=== PATIENT | male | born 1965 | race Caucasian/White ===

== ENCOUNTER 2020-06-27 10:37 | Emergency (ER) | payer BC, OTHER ==
[2020-06-27] MEDS ORDERED: Sodium Chloride 0.9% 10 ML Syringe FLUSH PRN ×2 (11:28→13:10)
[2020-06-27] MEDS ORDERED: Acetaminophen 325 MG Tab PO PRN (11:28)
[2020-06-27] MEDS ORDERED: Sodium Chloride 0.9% 1,000 ML IV ONE (11:28)
--- NOTE | 2020-06-27 11:32 | EDM.PDOC ---
ED HPI GENERAL MEDICAL PROBLEM - General Chief Complaint: Respiratory Problem Stated Complaint: COUGHING UP BLOOD, WEAK Time Seen by Provider: 06/27/20 11:18 Source of Information: Reports: Patient, RN Notes Reviewed History Limitations: Reports: No Limitations - History of Present Illness INITIAL COMMENTS - FREE TEXT/NARRATIVE: 55-year-old gentleman presents emergency department today with complaint of coughing up blood, he states is been ongoing for about 5days he does feel short of breath he denies any Covid exposure dizziness nausea he does have extensive tobacco history as well as losing weight without trying - Related Data Allergies Allergy/AdvReac Type Severity Reaction Status Date / Time No Known Allergies Allergy Verified 09/15/14 11:21 Home Meds: Home Meds Adapalene [Differin 0.1% Crm] 1 film TOP DAILY 09/15/14 [History] Aspirin [Adult Low Dose Aspirin EC] 81 mg PO DAILY 09/15/14 [History] Chlorthalidone 25 mg PO DAILY 09/15/14 [History] atenoloL [Tenormin] 100 mg PO DAILY 09/15/14 [History] Past Medical History Cardiovascular History: Reports: Hypertension Oncologic (Cancer) History: Reports: Colon - Past Surgical History GI Surgical History: Reports: Colonoscopy, Polypectomy Social & Family History - Tobacco Use Tobacco Use Status *Q: Current Every Day Tobacco User Years of Tobacco use: 38 Packs/Tins Daily: 0.5 - Caffeine Use Caffeine Use: Reports: Coffee - Alcohol Use Number of Drinks Per Day: 5 Date of Last Drink: 06/26/20 Time of Last Drink: 08:00 - Recreational Drug Use Recreational Drug Use: No ED ROS GENERAL - Review of Systems Review Of Systems: See Below Constitutional: Reports: Weakness, Fatigue, Weight Loss HEENT: Reports: No Symptoms Respiratory: Reports: Shortness of Breath, Cough, Hemoptysis Cardiovascular: Reports: Dyspnea on Exertion GI/Abdominal: Reports: No Symptoms ED EXAM, GENERAL - Physical Exam Exam: See Below Exam Limited By: No Limitations General Appearance: Alert, Mild Distress Respiratory/Chest: No Respiratory Distress, Decreased Breath Sounds. No: Rhonchi, Wheezing Cardiovascular: Regular Rate, Rhythm, No Murmur GI/Abdominal: Soft, Non-Tender Course - Vital Signs Last Recorded V/S: Last Vital Signs Temp 96.3 F L 06/27/20 11:09 Pulse 95 06/27/20 13:15 Resp 16 06/27/20 13:15 BP 143/92 H 06/27/20 13:15 Pulse Ox 97 06/27/20 13:15 - Orders/Labs/Meds Orders: Active Orders 24 hr Category Date Time Status Cardiac Monitoring [RC] .As Directed Care 06/27/20 11:32 Active Peripheral IV Care [RC] . DIRECTED Care 06/27/20 11:30 Active Acetaminophen [TylenoL] Med 06/27/20 11:28 Active 650 mg PO Q4H PRN Sodium Chloride 0.9% [Normal Saline] 1,000 ml Med 06/27/20 11:28 Active IV ASDIRECTED Sodium Chloride 0.9% [Saline Flush] Med 06/27/20 11:28 Active 10 ml FLUSH ASDIRECTED PRN Sodium Chloride 0.9% [Saline Flush] Med 06/27/20 13:10 Active 10 ml FLUSH ONETIME PRN cefTRIAXone [Rocephin] 1 gm Med 06/27/20 15:07 Ordered Sodium Chloride 0.9% [Normal Saline] 50 ml IV ONETIME Isolation [COMM] Stat Oth 06/27/20 11:29 Ordered Peripheral IV Insertion Adult [OM.PC] Urgent Oth 06/27/20 11:28 Ordered Medication Orders Acetaminophen (Tylenol) 650 mg PO Q4H PRN PRN Reason: Fever Greater Than 101 Sodium Chloride (Normal Saline) 1,000 mls @ 125 mls/hr IV ASDIRECTED ONE Stop: 06/27/20 19:27 Last Admin: 06/27/20 11:42 Dose: 125 mls/hr Documented by: JOLANTA Ceftriaxone Sodium 1 gm/ (Sodium Chloride) 50 mls @ 100 mls/hr IV ONETIME ONE Stop: 06/27/20 15:36 Sodium Chloride (Saline Flush) 10 ml FLUSH ASDIRECTED PRN PRN Reason: Keep Vein Open Last Admin: 06/27/20 11:43 Dose: 10 ml Documented by: JOLANTA Sodium Chloride (Saline Flush) 10 ml FLUSH ONETIME PRN PRN Reason: PER RADIOLOGY PROTOCOL Last Admin: 06/27/20 13:50 Dose: 10 ml Documented by: ENID Labs: Laboratory Tests 06/27/20 06/27/20 06/27/20 Range/Units 11:29 11:34 12:01 WBC (4.5-11.0) K/uL RBC (4.30-5.90) M/uL Hgb (12.0-15.0) g/dL Hct (40.0-54.0) % MCV (80-98) fL MCH (27-31) pg MCHC (32-36) % Plt Count (150-400) K/uL Neut % (Auto) (36-66) % Lymph % (Auto) (24-44) % Luce % (Auto) (2-6) % Eos % (Auto) (2-4) % Baso % (Auto) (0-1) % PT (9.5-12.0) sec INR (0.80-1.20) D-Dimer, Quantitative (0.0-500.0) ng/mL Puncture Site Lt radial ABG pH 7.479 H (7.350-7.450) ABG pCO2 41.9 (35.0-42.0) mmHg ABG pO2 43.1 L* (75.0-100.0) mmHg ABG HCO3 30.8 H (22.0-26.0) mmol/L ABG Total CO2 26.6 (23.0-27.0) mmol/L ABG O2 Saturation 74.4 L (95.0-98.0) % ABG O2 Content 15.0 (15.0-23.0) %vol ABG Base Excess 6.9 mm/L ABG Hemoglobin 14.6 (13.5-18.0) g/dL ABG Oxyhemoglobin 73.3 % ABG Carboxyhemoglobin 0.7 (0.0-1.6) % ABG Methemoglobin 0.8 % Patel Test Pass O2 Delivery Device Non rebr mask Sodium (140-148) mmol/L Potassium (3.6-5.2) mmol/L Chloride (100-108) mmol/L Carbon Dioxide (21-32) mmol/L Anion Gap (5.0-14.0) mmol/L BUN (7-18) mg/dL Creatinine (0.8-1.3) mg/dL Est Cr Clr Drug Dosing mL/min Estimated GFR (MDRD) (>60) Glucose (74-106) mg/dL Lactic Acid (0.4-2.0) mmol/L Calcium (8.5-10.1) mg/dL Ferritin 362 (8-388) ng/ml Total Bilirubin (0.2-1.0) mg/dL Direct Bilirubin (0.0-0.2) mg/dL Indirect Bilirubin AST (15-37) U/L ALT (12-78) U/L Alkaline Phosphatase (46-116) U/L Lactate Dehydrogenase (85-227) U/L C-Reactive Protein (0.0-0.3) mg/dL Total Protein (6.4-8.2) g/dL Albumin (3.4-5.0) g/dL Globulin (2.3-3.5) g/dL Albumin/Globulin Ratio (1.2-2.2) Procalcitonin ng/mL SARS CoV-2 RNA Rapid MARILYNN Negative 06/27/20 06/27/20 06/27/20 Range/Units 12:01 12:01 12:01 WBC 14.4 H (4.5-11.0) K/uL RBC 4.47 (4.30-5.90) M/uL Hgb 13.5 (12.0-15.0) g/dL Hct 39.6 L (40.0-54.0) % MCV 89 (80-98) fL MCH 30 (27-31) pg MCHC 34 (32-36) % Plt Count 395 (150-400) K/uL Neut % (Auto) 80 H (36-66) % Lymph % (Auto) 5 L (24-44) % Luce % (Auto) 14 H (2-6) % Eos % (Auto) 0 L (2-4) % Baso % (Auto) 1 (0-1) % PT (9.5-12.0) sec INR (0.80-1.20) D-Dimer, Quantitative 976.66 H (0.0-500.0) ng/mL Puncture Site ABG pH (7.350-7.450) ABG pCO2 (35.0-42.0) mmHg ABG pO2 (75.0-100.0) mmHg ABG HCO3 (22.0-26.0) mmol/L ABG Total CO2 (23.0-27.0) mmol/L ABG O2 Saturation (95.0-98.0) % ABG O2 Content (15.0-23.0) %vol ABG Base Excess mm/L ABG Hemoglobin (13.5-18.0) g/dL ABG Oxyhemoglobin % ABG Carboxyhemoglobin (0.0-1.6) % ABG Methemoglobin % Patel Test O2 Delivery Device Sodium 120 L (140-148) mmol/L Potassium 3.0 L (3.6-5.2) mmol/L Chloride 82 L (100-108) mmol/L Carbon Dioxide 30 (21-32) mmol/L Anion Gap 11.0 (5.0-14.0) mmol/L BUN 9 (7-18) mg/dL Creatinine 0.6 L (0.8-1.3) mg/dL Est Cr Clr Drug Dosing 107.60 mL/min Estimated GFR (MDRD) > 60 (>60) Glucose 154 H (74-106) mg/dL Lactic Acid (0.4-2.0) mmol/L Calcium 9.0 (8.5-10.1) mg/dL Ferritin (8-388) ng/ml Total Bilirubin 0.5 (0.2-1.0) mg/dL Direct Bilirubin 0.15 (0.0-0.2) mg/dL Indirect Bilirubin 0.35 AST 21 (15-37) U/L ALT 21 (12-78) U/L Alkaline Phosphatase 73 (46-116) U/L Lactate Dehydrogenase 189 (85-227) U/L C-Reactive Protein 5.58 H (0.0-0.3) mg/dL Total Protein 7.3 (6.4-8.2) g/dL Albumin 3.3 L (3.4-5.0) g/dL Globulin 4.0 H (2.3-3.5) g/dL Albumin/Globulin Ratio 0.8 L (1.2-2.2) Procalcitonin ng/mL SARS CoV-2 RNA Rapid MARILYNN 06/27/20 06/27/20 06/27/20 Range/Units 12:01 12:01 12:01 WBC (4.5-11.0) K/uL RBC (4.30-5.90) M/uL Hgb (12.0-15.0) g/dL Hct (40.0-54.0) % MCV (80-98) fL MCH (27-31) pg MCHC (32-36) % Plt Count (150-400) K/uL Neut % (Auto) (36-66) % Lymph % (Auto) (24-44) % Luce % (Auto) (2-6) % Eos % (Auto) (2-4) % Baso % (Auto) (0-1) % PT 10.0 (9.5-12.0) sec INR 0.92 (0.80-1.20) D-Dimer, Quantitative (0.0-500.0) ng/mL Puncture Site ABG pH (7.350-7.450) ABG pCO2 (35.0-42.0) mmHg ABG pO2 (75.0-100.0) mmHg ABG HCO3 (22.0-26.0) mmol/L ABG Total CO2 (23.0-27.0) mmol/L ABG O2 Saturation (95.0-98.0) % ABG O2 Content (15.0-23.0) %vol ABG Base Excess mm/L ABG Hemoglobin (13.5-18.0) g/dL ABG Oxyhemoglobin % ABG Carboxyhemoglobin (0.0-1.6) % ABG Methemoglobin % Patel Test O2 Delivery Device Sodium (140-148) mmol/L Potassium (3.6-5.2) mmol/L Chloride (100-108) mmol/L Carbon Dioxide (21-32) mmol/L Anion Gap (5.0-14.0) mmol/L BUN (7-18) mg/dL Creatinine (0.8-1.3) mg/dL Est Cr Clr Drug Dosing mL/min Estimated GFR (MDRD) (>60) Glucose (74-106) mg/dL Lactic Acid 1.9 (0.4-2.0) mmol/L Calcium (8.5-10.1) mg/dL Ferritin (8-388) ng/ml Total Bilirubin (0.2-1.0) mg/dL Direct Bilirubin (0.0-0.2) mg/dL Indirect Bilirubin AST (15-37) U/L ALT (12-78) U/L Alkaline Phosphatase (46-116) U/L Lactate Dehydrogenase (85-227) U/L C-Reactive Protein (0.0-0.3) mg/dL Total Protein (6.4-8.2) g/dL Albumin (3.4-5.0) g/dL Globulin (2.3-3.5) g/dL Albumin/Globulin Ratio (1.2-2.2) Procalcitonin < 0.05 ng/mL SARS CoV-2 RNA Rapid MARILYNN Meds: Medications Generic Name Dose Route Start Last Admin Trade Name Domingo PRN Reason Stop Dose Admin Acetaminophen 650 mg 06/27/20 11:28 Tylenol PO Q4H PRN Fever Greater Than 101 Sodium Chloride 1,000 mls @ 125 mls/hr 06/27/20 11:28 06/27/20 11:42 Normal Saline IV 06/27/20 19:27 125 mls/hr ASDIRECTED ONE Administration Ceftriaxone Sodium 1 gm/ 50 mls @ 100 mls/hr 06/27/20 15:07 Sodium Chloride IV 06/27/20 15:36 ONETIME ONE Sodium Chloride 10 ml 06/27/20 11:28 06/27/20 11:43 Saline Flush FLUSH 10 ml ASDIRECTED PRN Administration Keep Vein Open Sodium Chloride 10 ml 06/27/20 13:10 06/27/20 13:50 Saline Flush FLUSH 10 ml ONETIME PRN Administration PER RADIOLOGY PROTOCOL Discontinued Medications Generic Name Dose Route Start Last Admin Trade Name Domingo PRN Reason Stop Dose Admin Sodium Chloride 75 mls @ 3 mls/sec 06/27/20 13:10 06/27/20 13:50 Normal Saline IV 06/27/20 13:11 3 mls/sec ONETIME ONE Administration Iopamidol 100 ml 06/27/20 13:10 06/27/20 13:47 Isovue-300 (61%) IV 100 ml . 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 - Discharge Information Referrals: PCP,None [Primary Care Provider] - Forms: ED Department Discharge Sepsis Event Note (ED) - Evaluation Sepsis Screening Result: No Definite Risk - Focused Exam Vital Signs: Vital Signs Temp Pulse Resp BP Pulse Ox Pulse Ox 06/27/20 13:15 95 16 143/92 H 97 06/27/20 11:59 98 14 157/101 H 97 06/27/20 11:58 96 06/27/20 11:09 96.3 F L 116 H 146/94 H 75 L 06/27/20 10:55 96.3 F L 116 H 22 H 146/94 H 75 L - My Orders Last 24 Hours: My Active Orders 06/27/20 11:28 Acetaminophen [TylenoL] 650 mg PO Q4H PRN Sodium Chloride 0.9% [Normal Saline] 1,000 ml IV ASDIRECTED Sodium Chloride 0.9% [Saline Flush] 10 ml FLUSH ASDIRECTED PRN Peripheral IV Insertion Adult [OM.PC] Urgent 06/27/20 11:29 Isolation [COMM] Stat 06/27/20 11:30 Peripheral IV Care [RC] . DIRECTED 06/27/20 11:32 Cardiac Monitoring [RC] .As Directed 06/27/20 13:10 Sodium Chloride 0.9% [Saline Flush] 10 ml FLUSH ONETIME PRN 06/27/20 15:07 cefTRIAXone [Rocephin] 1 gm Sodium Chloride 0.9% [Normal Saline] 50 ml IV ONETIME - Assessment/Plan Last 24 Hours: My Active Orders 06/27/20 11:28 Acetaminophen [TylenoL] 650 mg PO Q4H PRN Sodium Chloride 0.9% [Normal Saline] 1,000 ml IV ASDIRECTED Sodium Chloride 0.9% [Saline Flush] 10 ml FLUSH ASDIRECTED PRN Peripheral IV Insertion Adult [OM.PC] Urgent 06/27/20 11:29 Isolation [COMM] Stat 06/27/20 11:30 Peripheral IV Care [RC] . DIRECTED 06/27/20 11:32 Cardiac Monitoring [RC] .As Directed 06/27/20 13:10 Sodium Chloride 0.9% [Saline Flush] 10 ml FLUSH ONETIME PRN 06/27/20 15:07 cefTRIAXone [Rocephin] 1 gm Sodium Chloride 0.9% [Normal Saline] 50 ml IV ONETIME Plan: Assessment Acuity = acute Site and laterality = right hilar mass with post bronchial occlusion producing a pneumonitis right lung lower lobes Etiology = schedule probable underlying malignancy Manifestations = hemoptysis, hypoxia Location of injury = Home Lab values = WBC elevated 14.4 consistent leukocytosis, D-dimer elevated 976 consistent with inflammatory type marker ABG only 7.48 PCO2 41.9 PCO2 33.1 bic arb 30.3 sodium low at 120 consistent hyponatremia potassium low 3.0 consistent hypokalemia lactic acid normal 1.9 CRP elevated 5.58 Covid test was negative CT scan of the chest reveals a 5 x 5 x 5.6 cm right hilar mass this with occlusion of the right Plan Call discussed case Dr. Cueva at 1520 emergency room physician [facility] he kindly excepted patient in transport will be transported via EMS ground he is maintaining his O2 saturation on 10 L nonrebreather 1 g Rocephin has been provided This note was dictated using [email or web address] voice recognition software please call with any questions on syntax or grammar.
[2020-06-27] MEDS ORDERED: Sodium Chloride 0.9% 75 ML IV ONE (13:10)
[2020-06-27] MEDS ORDERED: Iopamidol 612 MG/ML 100 ML Bottle IV PRN (13:10)
--- NOTE | 2020-06-27 13:11 | CR ---
CHEST: Portable 06/27/2020 at 12:07 PM CLINICAL HISTORY:Respiratory failure COMPARISON:None FINDINGS: There is significant opacification right hemithorax. There is a shift of the mediastinum to the right suggesting right lung volume loss as well as diffuse pneumonic infiltrate. There is bronchial cutoff sign in the right mainstem bronchus. This may be mucous plug or tumor. Left lung is emphysematous IMPRESSION: Right lung volume loss and diffuse infiltrate and consolidation. Right mainstem bronchial cutoff sign suggests either endobronchial tumor or mucous plug. If patient is stable CT chest should be considered prior to bronchoscopic evaluation Emphysematous changes
--- NOTE | 2020-06-27 14:42 | CT ---
Chest w Cont CLINICAL HISTORY: Hemoptysis, right lung volume loss TECHNIQUE: Axial scans were obtained from the thoracic inlet to the lung bases following IV infusion of iodinated contrast. Auto dosage reduction and iterative reconstructrion techniques employed. COMPARISON: None. FINDINGS: Lung window images moderate right lung volume loss with elevation of the right hemidiaphragm. This is felt to be due to atelectasis. There is also postobstructive pneumonia diffusely through the left lung. There is a large mass in the right hilum this invades the right mainstem bronchus to the level near the brandyn. It measures 5 x 5 x 5.7 cm. There is some lobulation extending into the right apex. This could be a second separate mass this measures 2.0 x 2.7 cm there are scattered groundglass opacities in the right upper lobe which may represent superimposed pneumonitis. Lungs are generally hyperaerated. There are atherosclerotic changes in the aorta.. Scans into the upper abdomen show enlargement of the left adrenal gland. IMPRESSION: 5.0 x 5.0 x 5.7 cm right hilar mass invading and occluding the right mainstem bronchus. There is postobstructive pneumonitis and significant atelectasis in the right lung with shift of the mediastinum and elevation of the right hemidiaphragm. Groundglass opacities in the left upper lobe may represent a pneumonitis. Changes of COPD Enlargement of the left adrenal gland could be metastatic
[2020-06-27] MEDS ORDERED: cefTRIAXone 1 GM in Sodium Chloride 0.9% 50 ML IV ONE (15:07)
[2020-06-27 17:04] VITALS: BP 135/88; PULSE 84
== END 2020-06-27 17:59 ==
LOC: JP.ED 10:37
DX: C34.01 Malignant neoplasm of right main bronchus (principal); J18.9 Pneumonia, unspecified organism; I10 Essential (primary) hypertension; F17.210 Nicotine dependence, cigarettes, uncomplicated; E87.6 Hypokalemia; D72.829 Elevated white blood cell count, unspecified; Z79.82 Long term (current) use of aspirin; Z79.899 Other long term (current) drug therapy; Z20.828 Contact with and (suspected) exposure to other viral communicable diseases
CPT/HCPCS: 36415; 36600; 71045; 71260; 80048; 80076; 82728; 82803; 83605; 83615; 84145; 85025; 85379; 85610; 86140; 87635; 96365; 99285; J0696; J7030; J7050; Q9967; U0002